=== PATIENT | female | born 1975 | race Caucasian/White ===

== ENCOUNTER → 2016-08-11 | Outpatient (CLI) | payer OTHER | END | disposition home or self-care (01) | LOC: C.PATHSPEC 14:10 | PROVIDERS: ATTEND Dermatology | DX: D23.5 Other benign neoplasm of skin of trunk (principal) ==

== ENCOUNTER → 2017-01-07 | Outpatient (CLI) | payer OTHER ==
[~2017-01-07] MED LIST: GADAVIST IV PRN
--- NOTE | 2017-01-07 15:05 | DIAGNOSTIC IMAGING REPORT ---
MRI OF THE BRAIN AND PITUITARY WITH AND WITHOUT CONTRAST CLINICAL HISTORY: Pituitary tumor. COMPARISON STUDY: MRI of the brain August 24, 2006. TECHNIQUE: Utilizing a 1.5 Alyce magnet, multiplanar, multi echo imaging of the brain and pituitary was performed pre and postcontrast administration with dynamic enhancement. Injection of 7 cc of Gadavist IV was uneventful. FINDINGS: There are no areas of restricted diffusion. No acute intracranial hemorrhage, midline shift or mass effect is present. Ventricular system is normal. Basilar cisterns are patent. There are no extra-axial collections. Flow-voids for the major intracranial vessels are present. Note is made of a 6 mm x 3 mm hypoenhancing lesion within the left aspect of the pituitary gland. This has minimal increase in size since exam of August 24, 2006 when it measured 6 mm x 2 mm. There are no additional lesions within the pituitary gland. Infundibulum remains midline. Cavernous sinus is unremarkable. No additional intracranial masses are present. There are no areas of significant parenchymal signal abnormality. IMPRESSION: Minimal increase in size of a 6 mm x 3 mm hypoenhancing lesion within the left aspect of the pituitary gland since MRI of August 24, 2016. The findings suggest a microadenoma. Otherwise, unremarkable MRI of the brain. Electronically signed by: Jose Anderson M.D. 01/07/2017 3:04 PM Dictated Date/Time: 01/07/2017 12:56 PM
== END | disposition home or self-care (01) ==
LOC: C.MRIBC 11:19
PROVIDERS: ATTEND Family Medicine
DX: D49.7 Neoplasm of unspecified behavior of endocrine glands and other parts of nervous system (principal)

== ENCOUNTER → 2017-02-10 | Outpatient (CLI) | payer OTHER ==
--- NOTE | 2017-02-11 12:29 | MAMMOGRAPHY REPORT ---
BILATERAL DIGITAL SCREENING MAMMOGRAM TOMOSYNTHESIS WITH CAD: 02/10/2017 CLINICAL HISTORY: Routine screening. Patient has no complaints. TECHNIQUE: Breast tomosynthesis in addition to standard 2D mammography was performed. Current study was also evaluated with a Computer Aided Detection (CAD) system. COMPARISON: Comparison is made to exam dated: 08/21/2014 mammogram. BREAST COMPOSITION: The tissue of both breasts is heterogeneously dense, which may obscure small mas ses. FINDINGS: The parenchymal pattern is similar to prior mammograms. No developing mass, architectural distortion or cluster of suspicious microcalcifications is seen in either breast. IMPRESSION: ACR BI-RADS CATEGORY 2: BENIGN There is no mammographic evidence of malignancy. A 1 year screening mammogram is recommended. The pa tient will receive written notification of the results. Approximately 10% of breast cancers are not detected with mammography. A negative mammographic report should not delay biopsy if a clinically suggestive mass is present. Sarah Pope M.D. ay/:02/10/2017 16:19:30 Butter Grader: Stacey BROWN(Lisa)(M), [facility] letter sent: Normal 1/2 BI-RADS Code: ACR BI-RADS Category 2: Benign
== END | disposition home or self-care (01) ==
LOC: C.MAMM 15:54
PROVIDERS: ATTEND Family Medicine
DX: Z12.31 Encounter for screening mammogram for malignant neoplasm of breast (principal)

== ENCOUNTER → 2017-02-15 | Outpatient (CLI) | payer OTHER | END | disposition home or self-care (01) | LOC: C.PATHSPEC 16:38 | PROVIDERS: ATTEND Dermatology | DX: D22.9 Melanocytic nevi, unspecified (principal); D23.62 Other benign neoplasm of skin of left upper limb, including shoulder ==

== ENCOUNTER → 2017-07-19 | Outpatient (CLI) | payer OTHER ==
--- NOTE | 2017-07-19 15:01 | ECHOCARDIOGRAM REPORT ---
*NOTICE TO RECEIVING REPUBLICAN AGENCY This information is strictly Confidential and protected under [place] law. [place] law prohibits you from making any further disclosure of this information unless further disclosure is expressly permitted by the written consent of the person to whom it pertains or is authorized by law. A general authorization for the release of medical or other information is not sufficient for this purpose. Hospital accepts no responsibility if the information is made available to any other person, INCLUDING THE PATIENT. Interpretation Summary * Name: IVONNE BEAR Study Date: 07/19/2017 12:40 PM BP: 106/62 mmHg * Patient Location: [facility] HR: 59 * : 1975 (M/d/yyyy) Gender: Female Height: 65 in * Age: 42 yrs Ethnicity: [place] Weight: 155 lb * Ordering Physician: Michaelle Lisa * Referring Physician: Michaelle Lisa. * Performed By: Karon Denise RDCS * * Reason For Study: PITUITARY TUMOR, MEDICATION AFFECTING HEART * BSA: 1.8 m2 * -- Conclusions -- * Left ventricular systolic function is normal. * No regional wall motion abnormalities noted. * Ejection Fraction = 60-65%. * No significant valvular pathology. Procedure Details * A complete two-dimensional transthoracic echocardiogram was performed (2D, M-mode, Doppler and color flow Doppler). Left Ventricle * The left ventricle is normal in size. * Ejection Fraction = 60-65%. * Left ventricular systolic function is normal. * No regional wall motion abnormalities noted. Right Ventricle * The right ventricle is grossly normal size. * The right ventricular systolic function is normal as assessed by tricuspid annular plane systolic excursion (TAPSE) (normal >1.5 cm). Atria * The left atrial size is normal. * Right atrial size is normal. * There is no evidence of atrial septal defect, but resolution does not allow assessment for a patent foramen ovale. Mitral Valve * The mitral valve anatomy is normal. * There is no mitral valve stenosis. * Significant mitral regurgitation is absent. Tricuspid Valve * The tricuspid valve anatomy is normal. * There is no tricuspid stenosis. * There is trace tricuspid regurgitation. Aortic Valve * The aortic valve is normal in structure and function. * No hemodynamically significant valvular aortic stenosis. * No aortic regurgitation is present. Pulmonic Valve * The pulmonary valve is not well seen, but the Doppler examination is normal without significant regurgitation or stenosis. Great Vessels * The aortic root is normal size. * The pulmonary artery is not well visualized, but is probably normal size. Pericardium/Pleural * There is no pericardial effusion. Great Vessels * Normal inferior vena cava size and collapsability with sniff indicates a normal right atrial pressure of 3 mmHg MMode 2D Measurements and Calculations IVSd 0.88 cm IVSs 1.3 cm LVIDd 4.6 cm LVIDs 3.0 cm LVPWd 0.95 cm LVPWs 1.7 cm IVS/LVPW 0.92 FS 34.4 % EDV(Teich) 99.7 ml ESV(Teich) 36.4 ml EF(Teich) 63.5 % EDV(cubed) 100.4 ml ESV(cubed) 28.3 ml EF(cubed) 71.8 % % IVS thick 52.0 % % LVPW thick 74.5 % LV mass(C)d 143.6 grams LV mass(C)dI 80.9 grams/m\S\2 LV mass(C)s 161.3 grams LV mass(C)sI 90.9 grams/m\S\2 SV(Teich) 63.3 ml SI(Teich) 35.7 ml/m\S\2 SV(cubed) 72.1 ml SI(cubed) 40.6 ml/m\S\2 Ao root diam 2.7 cm Ao root area 5.8 cm\S\2 LA dimension 3.2 cm LA/Ao 1.2 LVAd ap4 29.7 cm\S\2 LVLd ap4 8.2 cm EDV(MOD-sp4) 92.0 ml EDV(sp4-el) 90.7 ml LVAs ap4 16.5 cm\S\2 LVLs ap4 7.0 cm ESV(MOD-sp4) 35.6 ml ESV(sp4-el) 33.1 ml EF(MOD-sp4) 61.3 % EF(sp4-el) 63.5 % LVAd ap2 24.7 cm\S\2 LVLd ap2 8.6 cm EDV(MOD-sp2) 58.4 ml EDV(sp2-el) 60.2 ml LVAs ap2 12.5 cm\S\2 LVLs ap2 6.5 cm ESV(MOD-sp2) 21.1 ml ESV(sp2-el) 20.4 ml EF(MOD-sp2) 63.9 % EF(sp2-el) 66.1 % LVLd %diff 3.9 % EDV(MOD-bp) 75.2 ml LVLs %diff -7.56 % ESV(MOD-bp) 27.7 ml EF(MOD-bp) 63.2 % SV(MOD-sp4) 56.4 ml SI(MOD-sp4) 31.8 ml/m\S\2 SV(MOD-sp2) 37.3 ml SI(MOD-sp2) 21.0 ml/m\S\2 SV(MOD-bp) 47.5 ml SI(MOD-bp) 26.8 ml/m\S\2 SV(sp4-el) 57.5 ml SI(sp4-el) 32.4 ml/m\S\2 SV(sp2-el) 39.8 ml SI(sp2-el) 22.4 ml/m\S\2 Doppler Measurements and Calculations Ao V2 max 138.0 cm/sec Ao max PG 7.6 mmHg Ao max PG (full) 2.5 mmHg LV V1 max PG 5.1 mmHg LV V1 max 112.8 cm/sec TR max mica 228.5 cm/sec
== END | disposition home or self-care (01) ==
LOC: C.CPL 12:38
PROVIDERS: ATTEND Family Medicine
DX: D35.2 Benign neoplasm of pituitary gland (principal)